=== PATIENT | male | born 1995 | race Caucasian/White ===

== ENCOUNTER 2016-10-23 13:34 | Day surgery (SDC) | payer OTHER ==
[~2016-10-23] VITALS: Ht 177.8 cm; Wt 104.6 kg
[~2016-10-23 13:34] MED LIST: FLEXERIL10 MG PO; MOTRIN600 MG PO; MOTRIN800 MG PO
[2016-10-23 14:47] LABS: HEMATOCRIT 47.1 % (38.0-50.0); MCH 28.3 PG (29.0-34.0); MCV 83.4 FL (86-99); MEAN PLAT.VOLUME 9.7 uM^3 (9.0-12.4); PLATELET COUNT 254 K/uL (156-360); RBC DIS.WIDTH-CV 12.6 % (11.8-14.6); RBC DIS.WIDTH-SD 38.5 % (39-53); RED BLOOD COUNT 5.65 M/uL (4.00-5.50); WHITE BLOOD COUNT 17.1 K/uL (4.1-10.2)
[2016-10-23 14:56] LABS: ADD MIUA? NO; BILIRUBIN NEGATIVE; BLOOD NEGATIVE; COLOR YELLOW ((YELLOW)); GLUCOSE (STRIP) NEGATIVE; KETONES 80; LEUKOCYTES NEGATIVE; NITRITE NEGATIVE; PROTEIN (STRIP) NEGATIVE; SPECIFIC GRAVITY 1.016 (1.000-1.030); UCUL ADDED? NO; UROBILINOGEN 0.2 MG/DL (0.2-1.0)
[2016-10-23 14:56] LABS: CHLORIDE 103 mEq/L (99-109); POTASSIUM 4.2 mEq/L (3.7-5.4); SODIUM 138 mEq/L (136-147)
[2016-10-23 14:58] LABS: GLUCOSE 85 mg/dL (70-99)
[2016-10-23 14:59] LABS: ANION GAP 12 MEQ/L (2-14)
[2016-10-23 15:00] LABS: TOTAL BILIRUBIN 0.8 mg/dL (0.0-1.0)
[2016-10-23 15:01] LABS: ALKALINE PHOSPHATASE 69 IU/L (3-129)
[2016-10-23 15:02] LABS: GFR ESTIMATE (CALCULATED) > 59 mL/min/
[2016-10-23 15:03] LABS: UREA NITROGEN (BUN) 16 mg/dL (9-23)
[2016-10-24 02:57] VITALS: BP 137/68
[2016-10-24 07:49] VITALS: BP 136/65
[2016-10-24 11:25] VITALS: BP 147/75
[2016-10-24 15:33] VITALS: BP 140/65
[2016-10-24 20:00] VITALS: BP 136/65
[2016-10-25 00:33] VITALS: BP 133/59
[2016-10-25 04:15] VITALS: BP 138/61
[2016-10-25 08:00] VITALS: BP 132/60
== END 2016-10-25 10:24 | disposition home or self-care (01) ==
LOC: EME 13:34 → SDC 23:26 → 2SOUTH 10-24 01:15 → 2EAST 10-24 02:40
PROC: 0DTJ0ZZ Resection of Appendix, Open Approach (ICD-10-PCS; principal; 2016-10-24)
DX: K35.80 Unspecified acute appendicitis (principal)
CPT/HCPCS: 74176; 80053; 81003; 85027; 88304; 99281; 99285; G0378; J1170; J1335; J2250; J2270; J2405; J3010; J7030; J7050; S0020